=== PATIENT | female | born 1955 | race Caucasian/White ===

== ENCOUNTER 2018-05-21 13:02 | Inpatient (IN) | payer MEDICARE, MEDICAID ==
[~2018-05-21] VITALS: Ht 160 cm; Wt 74.2 kg
[2018-05-21] MEDS ORDERED: SODIUM CHLORIDE FLUSH 10ML SYR IVF ONE (13:30)
[2018-05-21] MEDS ORDERED: ENAL5TAB PO (13:57)
[2018-05-21] MEDS ORDERED: CARV6.25 PO (13:57)
[2018-05-21 14:13] LABS: BASOPHILS # (AUTO) 0.03 x10^3/uL (0-0.1); BASOPHILS % (AUTO) 1 % (0-1); EOSINOPHILS # (AUTO) 0.11 x10^3/uL (0-0.4); EOSINOPHILS % (AUTO) 2 % (1-7); LYMPHOCYTES % (AUTO) 15 % (22-44); MD NO; MEAN CORPUSCULAR HEMOGLOBIN 31.7 pg (27.0-34.8); MEAN CORPUSCULAR HGB CONC 32.6 g/dL (32.4-35.8); MEAN CORPUSCULAR VOLUME 97.2 fL (80-100); MEAN PLATELET VOLUME 9.6 fL (7.4-10.4); MONOCYTES # (AUTO) 0.64 x10^3/uL (0.2-0.8); MONOCYTES % (AUTO) 10 % (2-9); NEUTROPHILS # (AUTO) 4.76 x10^3/uL (1.8-6.8); NEUTROPHILS % (AUTO) 73 % (42-75); PLATELET COUNT 177 x10^3/uL (130-400); RED BLOOD COUNT 4.16 x10^6/uL (3.82-5.3); RED CELL DISTRIBUTION WIDTH 15.8 % (9.6-15.2)
[2018-05-21 14:23] LABS: ALBUMIN 3.2 g/dL (3.4-5.0); ANION GAP 7 mmol/L (5-15); CALCIUM 8.9 mg/dL (8.5-10.1); CHLORIDE 113 mmol/L (98-107)
[2018-05-21 14:30] LABS: ALANINE AMINOTRANSFERASE 28 U/L (12-78); ALKALINE PHOSPHATASE 100 U/L (45-117); BILIRUBIN,TOTAL 1.1 mg/dL (0.2-1.0); CREATININE 1.59 mg/dL (0.55-1.02); FREE T4 (FREE THYROXINE) 1.34 ng/dL (0.76-1.46); TROPONIN I 0.029 ng/mL (0.000-0.045)
--- NOTE | 2018-05-21 15:32 | NUR ---
KAMERON MARSH IN RADIOLOGY REGARDING CHEST X-RAY. STAFF LOOKING INTO DELAY.
[2018-05-21] MEDS ORDERED: PLEASE ENTER HEIGHT AND WEIGHT MC SCH (17:00)
[2018-05-21] MEDS: FUROSEMIDE 40 MG/4 ML IVPush ONE ×2 (17:00→17:25)
[2018-05-21] MEDS ORDERED: PLEASE ENTER ALLERGIES MC SCH (17:00)
[2018-05-21] MEDS ORDERED: FUROSEMIDE 40 MG/4 ML ONE (17:21)
[2018-05-21 18:19] LABS: TROPONIN I 0.036 ng/mL (0.000-0.045)
[2018-05-21 19:22] LABS: HEMOGLOBIN A1C 5.3 % (4.2-6.3)
[2018-05-21] MEDS ORDERED: FUROSEMIDE 40 MG/4 ML IV ONE (19:30)
[2018-05-21] MEDS: HEPARIN 5,000 UNITS/ML, 1ML SQ SCH (20:05)
[2018-05-21] MEDS: CARVEDILOL 3.125 MG TABLET PO SCH (20:06)
[2018-05-21] MEDS: SODIUM CHLORIDE FLUSH 10ML SYR IVF SCH (20:07)
[2018-05-21 20:54] LABS: CHOL/HDL RATIO 5.4; LDL/HDL RATIO 3.7 (0.5-3.0)
[2018-05-21] MEDS ORDERED: ATORVASTATIN 40 MG TABLET PO SCH (21:00)
[2018-05-21] MEDS ORDERED: ENALAPRIL 5MG TABLET PO SCH (21:00)
[2018-05-21] MEDS: ATORVASTATIN 40 MG TABLET PO SCH (21:00)
[2018-05-21] MEDS: ENALAPRIL 5MG TABLET PO SCH (21:00)
[2018-05-21] MEDS ORDERED: ENALAPRIL 2.5MG TABLET PO SCH (21:00)
[2018-05-21 21:42] VITALS: BP 123/70
[2018-05-21 21:46] VITALS: BP_SYST 114; BP_SYST 122; BP_DIAS 66; BP_DIAS 77
[2018-05-21] MEDS: NICOTINE 14MG/24 HR PATCH.TD24 TD SCH (22:26)
[2018-05-21] MEDS: DIPHENHYDRAMINE 25 MG CAPSULE PO PRN (22:26)
[2018-05-21 22:29] VITALS: BP 121/78
[2018-05-21 23:40] LABS: TROPONIN I 0.019 ng/mL (0.000-0.045)
[2018-05-22 02:03] VITALS: BP 117/61
[2018-05-22 02:31] LABS: RAPID INFLUENZA A Negative (Negative); RAPID INFLUENZA B Negative (Negative)
[2018-05-22] MEDS: HEPARIN 5,000 UNITS/ML, 1ML SQ SCH ×3 (04:30→20:25)
[2018-05-22 05:35] LABS: BASOPHILS # (AUTO) 0.02 x10^3/uL (0-0.1); BASOPHILS % (AUTO) 0 % (0-1); EOSINOPHILS # (AUTO) 0.12 x10^3/uL (0-0.4); EOSINOPHILS % (AUTO) 2 % (1-7); LYMPHOCYTES # (AUTO) 1.07 x10^3/uL (1-3.4); LYMPHOCYTES % (AUTO) 18 % (22-44); MD NO; MEAN CORPUSCULAR HGB CONC 33.2 g/dL (32.4-35.8); MEAN CORPUSCULAR VOLUME 96.5 fL (80-100); MEAN PLATELET VOLUME 9.6 fL (7.4-10.4); MONOCYTES # (AUTO) 0.72 x10^3/uL (0.2-0.8); MONOCYTES % (AUTO) 12 % (2-9); NEUTROPHILS # (AUTO) 3.95 x10^3/uL (1.8-6.8); NEUTROPHILS % (AUTO) 67 % (42-75); PLATELET COUNT 146 x10^3/uL (130-400); RED BLOOD COUNT 3.79 x10^6/uL (3.82-5.3); RED CELL DISTRIBUTION WIDTH 15.2 % (9.6-15.2)
[2018-05-22 05:47] LABS: ALBUMIN 3.1 g/dL (3.4-5.0); ANION GAP 6 mmol/L (5-15); CALCIUM 8.9 mg/dL (8.5-10.1); CHLORIDE 110 mmol/L (98-107)
[2018-05-22 05:59] LABS: ALANINE AMINOTRANSFERASE 24 U/L (12-78); ALKALINE PHOSPHATASE 96 U/L (45-117); BILIRUBIN,TOTAL 1.1 mg/dL (0.2-1.0); CREATININE 1.68 mg/dL (0.55-1.02); TOTAL PROTEIN 6.4 g/dL (6.4-8.2)
[2018-05-22] MEDS: CARVEDILOL 3.125 MG TABLET PO SCH ×2 (06:13→18:02)
[2018-05-22] MEDS ORDERED: FUROSEMIDE 20 MG/2 ML IV SCH (07:30)
[2018-05-22 09:30] VITALS: BP 105/63
[2018-05-22] MEDS: FAMOTIDINE 20 MG TABLET PO SCH (09:46)
[2018-05-22] MEDS: ASPIRIN 81 MG TABLET EC PO SCH (09:46)
[2018-05-22] MEDS: SODIUM CHLORIDE FLUSH 10ML SYR IVF SCH ×2 (09:46→20:25)
[2018-05-22] MEDS: MAGNESIUM OXIDE 400 MG TABLET PO SCH (09:46)
[2018-05-22] MEDS: ENALAPRIL 5MG TABLET PO SCH ×2 (09:46→20:24)
[2018-05-22 13:35] VITALS: BP 134/78
[2018-05-22] MEDS ORDERED: MELA10TA7 PO (15:34)
[2018-05-22 18:02] VITALS: BP 126/85
[2018-05-22] MEDS: FUROSEMIDE 20 MG TABLET PO SCH (18:02)
[2018-05-22] MEDS: ATORVASTATIN 40 MG TABLET PO SCH (20:24)
[2018-05-22] MEDS: NICOTINE 14MG/24 HR PATCH.TD24 TD SCH (20:24)
[2018-05-22] MEDS: MELATONIN 5 MG TABLET PO SCH (20:25)
[2018-05-22 20:55] VITALS: BP 103/68
[2018-05-22] MEDS: ACETAMINOPHEN 325 MG TABLET PO PRN (22:57)
[2018-05-23] MEDS: HEPARIN 5,000 UNITS/ML, 1ML SQ SCH ×3 (04:49→21:09)
[2018-05-23 05:56] VITALS: BP 102/65
[2018-05-23] MEDS: CARVEDILOL 3.125 MG TABLET PO SCH ×2 (05:57→17:51)
[2018-05-23 06:07] LABS: BASOPHILS # (AUTO) 0.02 x10^3/uL (0-0.1); BASOPHILS % (AUTO) 0 % (0-1); EOSINOPHILS # (AUTO) 0.18 x10^3/uL (0-0.4); EOSINOPHILS % (AUTO) 3 % (1-7); LYMPHOCYTES # (AUTO) 0.87 x10^3/uL (1-3.4); LYMPHOCYTES % (AUTO) 15 % (22-44); MD NO; MEAN CORPUSCULAR HEMOGLOBIN 31.1 pg (27.0-34.8); MEAN PLATELET VOLUME 10.1 fL (7.4-10.4); MONOCYTES # (AUTO) 0.71 x10^3/uL (0.2-0.8); MONOCYTES % (AUTO) 12 % (2-9); NEUTROPHILS # (AUTO) 4.02 x10^3/uL (1.8-6.8); NEUTROPHILS % (AUTO) 69 % (42-75); PLATELET COUNT 128 x10^3/uL (130-400); RED BLOOD COUNT 4.22 x10^6/uL (3.82-5.3); RED CELL DISTRIBUTION WIDTH 15.4 % (9.6-15.2)
[2018-05-23 06:19] LABS: ANION GAP 7 mmol/L (5-15); CHLORIDE 110 mmol/L (98-107)
[2018-05-23 06:22] LABS: ALANINE AMINOTRANSFERASE 23 U/L (12-78); ALKALINE PHOSPHATASE 101 U/L (45-117); BILIRUBIN,TOTAL 1.7 mg/dL (0.2-1.0); CREATININE 1.97 mg/dL (0.55-1.02); TOTAL PROTEIN 6.7 g/dL (6.4-8.2)
[2018-05-23 07:19] VITALS: BP 123/74
[2018-05-23] MEDS ORDERED: SODIUM CHLORIDE NASAL SPRAY 45ML BOTTLE NAS PRN (09:30)
[2018-05-23] MEDS ORDERED: FUROSEMIDE 20 MG/2 ML IV ONE (09:30)
[2018-05-23] MEDS: FAMOTIDINE 20 MG TABLET PO SCH (09:53)
[2018-05-23] MEDS: FUROSEMIDE 20 MG TABLET PO SCH ×2 (09:54→17:51)
[2018-05-23] MEDS: MAGNESIUM OXIDE 400 MG TABLET PO SCH (09:54)
[2018-05-23] MEDS: ASPIRIN 81 MG TABLET EC PO SCH (09:54)
[2018-05-23] MEDS: SODIUM CHLORIDE FLUSH 10ML SYR IVF SCH ×2 (09:54→21:11)
[2018-05-23] MEDS: ENALAPRIL 5MG TABLET PO SCH ×2 (09:54→21:10)
[2018-05-23 12:48] VITALS: BP 110/69
[2018-05-23] MEDS: ACETAMINOPHEN 325 MG TABLET PO PRN (17:51)
[2018-05-23 19:47] VITALS: BP 105/53
[2018-05-23] MEDS: NICOTINE 14MG/24 HR PATCH.TD24 TD SCH (21:09)
[2018-05-23] MEDS: MELATONIN 5 MG TABLET PO SCH (21:10)
[2018-05-23] MEDS: ATORVASTATIN 40 MG TABLET PO SCH (21:10)
[2018-05-24 03:36] VITALS: BP 131/82
[2018-05-24] MEDS: HEPARIN 5,000 UNITS/ML, 1ML SQ SCH ×3 (04:30→21:09)
[2018-05-24 05:06] LABS: BASOPHILS # (AUTO) 0.03 x10^3/uL (0-0.1); BASOPHILS % (AUTO) 1 % (0-1); EOSINOPHILS % (AUTO) 4 % (1-7); LYMPHOCYTES # (AUTO) 1.06 x10^3/uL (1-3.4); LYMPHOCYTES % (AUTO) 20 % (22-44); MD NO; MEAN CORPUSCULAR HEMOGLOBIN 31.7 pg (27.0-34.8); MEAN CORPUSCULAR HGB CONC 32.7 g/dL (32.4-35.8); MEAN CORPUSCULAR VOLUME 97.1 fL (80-100); MEAN PLATELET VOLUME 9.7 fL (7.4-10.4); MONOCYTES # (AUTO) 0.72 x10^3/uL (0.2-0.8); MONOCYTES % (AUTO) 13 % (2-9); NEUTROPHILS # (AUTO) 3.36 x10^3/uL (1.8-6.8); NEUTROPHILS % (AUTO) 62 % (42-75); PLATELET COUNT 148 x10^3/uL (130-400); RED BLOOD COUNT 3.94 x10^6/uL (3.82-5.3); RED CELL DISTRIBUTION WIDTH 14.9 % (9.6-15.2)
[2018-05-24 05:15] LABS: CHLORIDE 108 mmol/L (98-107)
[2018-05-24 05:27] LABS: ALANINE AMINOTRANSFERASE 23 U/L (12-78); ALBUMIN 2.9 g/dL (3.4-5.0); ALKALINE PHOSPHATASE 99 U/L (45-117); ANION GAP 6 mmol/L (5-15); BILIRUBIN,TOTAL 0.9 mg/dL (0.2-1.0); CALCIUM 8.8 mg/dL (8.5-10.1); CREATININE 1.86 mg/dL (0.55-1.02); TOTAL PROTEIN 6.6 g/dL (6.4-8.2)
[2018-05-24] MEDS: ACETAMINOPHEN 325 MG TABLET PO PRN ×2 (05:35→20:13)
[2018-05-24] MEDS: CARVEDILOL 3.125 MG TABLET PO SCH (05:35)
[2018-05-24 07:43] VITALS: BP 117/74
[2018-05-24] MEDS ORDERED: REGADENOSON 0.4 MG/5 ML SYRINGE ONE (08:03)
[2018-05-24 13:08] VITALS: BP 112/79
[2018-05-24] MEDS: MAGNESIUM OXIDE 400 MG TABLET PO SCH (13:11)
[2018-05-24] MEDS: ENALAPRIL 5MG TABLET PO SCH ×2 (13:11→21:09)
[2018-05-24] MEDS: FAMOTIDINE 20 MG TABLET PO SCH (13:11)
[2018-05-24] MEDS: FUROSEMIDE 20 MG TABLET PO SCH ×2 (13:12→18:20)
[2018-05-24] MEDS: ASPIRIN 81 MG TABLET EC PO SCH (13:12)
[2018-05-24] MEDS: NICOTINE 7 MG/24 HR PATCH.TD24 TD SCH (13:13)
[2018-05-24 18:19] VITALS: BP 121/69
[2018-05-24] MEDS: SODIUM CHLORIDE FLUSH 10ML SYR IVF SCH ×2 (18:20→21:00)
[2018-05-24] MEDS: CARVEDILOL 6.25 MG TABLET PO SCH (18:21)
[2018-05-24 19:45] VITALS: BP 110/68
[2018-05-24] MEDS: ATORVASTATIN 40 MG TABLET PO SCH (21:10)
[2018-05-24] MEDS: MELATONIN 5 MG TABLET PO SCH (21:10)
[2018-05-25 02:42] VITALS: BP 106/65
[2018-05-25 05:18] VITALS: BP 122/58
[2018-05-25] MEDS: CARVEDILOL 6.25 MG TABLET PO SCH ×2 (05:18→16:59)
[2018-05-25] MEDS: HEPARIN 5,000 UNITS/ML, 1ML SQ SCH ×3 (05:19→20:24)
[2018-05-25 05:36] LABS: BASOPHILS # (AUTO) 0.08 x10^3/uL (0-0.1); BASOPHILS % (AUTO) 1 % (0-1); EOSINOPHILS % (AUTO) 5 % (1-7); LYMPHOCYTES # (AUTO) 1.17 x10^3/uL (1-3.4); LYMPHOCYTES % (AUTO) 20 % (22-44); MD NO; MEAN CORPUSCULAR HEMOGLOBIN 31.7 pg (27.0-34.8); MEAN CORPUSCULAR VOLUME 95.8 fL (80-100); MEAN PLATELET VOLUME 9.3 fL (7.4-10.4); MONOCYTES # (AUTO) 0.71 x10^3/uL (0.2-0.8); MONOCYTES % (AUTO) 12 % (2-9); NEUTROPHILS # (AUTO) 3.51 x10^3/uL (1.8-6.8); NEUTROPHILS % (AUTO) 61 % (42-75); PLATELET COUNT 153 x10^3/uL (130-400); RED CELL DISTRIBUTION WIDTH 14.9 % (9.6-15.2)
[2018-05-25 05:48] LABS: CHLORIDE 105 mmol/L (98-107)
[2018-05-25 06:04] LABS: ALANINE AMINOTRANSFERASE 20 U/L (12-78); ALKALINE PHOSPHATASE 89 U/L (45-117); ANION GAP 5 mmol/L (5-15); BILIRUBIN,TOTAL 1.6 mg/dL (0.2-1.0); CALCIUM 8.9 mg/dL (8.5-10.1); CREATININE 1.87 mg/dL (0.55-1.02); TOTAL PROTEIN 6.5 g/dL (6.4-8.2)
[2018-05-25 07:27] VITALS: BP 119/69
[2018-05-25] MEDS: FAMOTIDINE 20 MG TABLET PO SCH (08:22)
[2018-05-25] MEDS: FUROSEMIDE 20 MG TABLET PO SCH ×2 (08:23→16:59)
[2018-05-25] MEDS: ENALAPRIL 5MG TABLET PO SCH ×2 (08:23→20:23)
[2018-05-25] MEDS: SODIUM CHLORIDE FLUSH 10ML SYR IVF SCH ×2 (08:23→20:23)
[2018-05-25] MEDS: ASPIRIN 81 MG TABLET EC PO SCH (08:23)
[2018-05-25] MEDS: MAGNESIUM OXIDE 400 MG TABLET PO SCH (08:23)
[2018-05-25] MEDS ORDERED: FUROSEMIDE 20 MG/2 ML IV ONE (11:00)
[2018-05-25] MEDS ORDERED: POTASSIUM CHLORIDE 20 MEQ TAB.ER.PRT PO ONE (11:00)
[2018-05-25] MEDS: NICOTINE 7 MG/24 HR PATCH.TD24 TD SCH (11:44)
[2018-05-25 13:13] VITALS: BP 102/65
[2018-05-25 18:46] VITALS: BP 117/77
[2018-05-25] MEDS: MELATONIN 5 MG TABLET PO SCH (20:23)
[2018-05-25] MEDS: ATORVASTATIN 40 MG TABLET PO SCH (20:23)
[2018-05-25] MEDS: ACETAMINOPHEN 325 MG TABLET PO PRN (20:24)
[2018-05-25] MEDS: DIPHENHYDRAMINE 25 MG CAPSULE PO PRN (20:24)
[2018-05-26 01:02] VITALS: BP 115/66
[2018-05-26] MEDS: CARVEDILOL 6.25 MG TABLET PO SCH ×2 (05:10→17:34)
[2018-05-26] MEDS: HEPARIN 5,000 UNITS/ML, 1ML SQ SCH ×3 (05:10→19:59)
[2018-05-26 05:49] LABS: ANION GAP 3 mmol/L (5-15); CALCIUM 8.9 mg/dL (8.5-10.1); CHLORIDE 103 mmol/L (98-107)
[2018-05-26 05:51] LABS: CREATININE 1.68 mg/dL (0.55-1.02)
[2018-05-26 07:45] VITALS: BP 112/68
[2018-05-26 09:39] VITALS: BP 112/71
[2018-05-26] MEDS: MAGNESIUM OXIDE 400 MG TABLET PO SCH (09:47)
[2018-05-26] MEDS: ENALAPRIL 5MG TABLET PO SCH ×2 (09:48→20:02)
[2018-05-26] MEDS: FUROSEMIDE 20 MG TABLET PO SCH ×2 (09:50→17:34)
[2018-05-26] MEDS: ASPIRIN 81 MG TABLET EC PO SCH (09:50)
[2018-05-26] MEDS: FAMOTIDINE 20 MG TABLET PO SCH (09:50)
[2018-05-26] MEDS: SODIUM CHLORIDE FLUSH 10ML SYR IVF SCH ×2 (09:51→19:58)
[2018-05-26] MEDS: ACETAMINOPHEN 325 MG TABLET PO PRN ×2 (10:48→19:59)
[2018-05-26] MEDS: SPIRONOLACTONE 25 MG TABLET PO SCH (11:17)
[2018-05-26] MEDS: NICOTINE 7 MG/24 HR PATCH.TD24 TD SCH (11:19)
[2018-05-26 14:50] VITALS: BP 102/57
[2018-05-26 17:33] VITALS: BP 109/66
[2018-05-26] MEDS: MELATONIN 5 MG TABLET PO SCH (19:58)
[2018-05-26] MEDS: ATORVASTATIN 40 MG TABLET PO SCH (19:58)
[2018-05-26] MEDS: DIPHENHYDRAMINE 25 MG CAPSULE PO PRN (19:59)
[2018-05-26 20:46] VITALS: BP 112/74
[2018-05-27 00:20] VITALS: BP 100/64
[2018-05-27 05:12] LABS: CHLORIDE 98 mmol/L (98-107)
[2018-05-27 05:21] LABS: ANION GAP 5 mmol/L (5-15); CALCIUM 9.2 mg/dL (8.5-10.1); CREATININE 1.82 mg/dL (0.55-1.02)
[2018-05-27] MEDS: CARVEDILOL 6.25 MG TABLET PO SCH ×2 (05:30→17:50)
[2018-05-27] MEDS: HEPARIN 5,000 UNITS/ML, 1ML SQ SCH ×2 (05:30→12:58)
[2018-05-27 06:56] VITALS: BP 117/75
[2018-05-27] MEDS: MAGNESIUM OXIDE 400 MG TABLET PO SCH (07:54)
[2018-05-27] MEDS: FUROSEMIDE 20 MG TABLET PO SCH ×2 (07:54→17:50)
[2018-05-27] MEDS: SPIRONOLACTONE 25 MG TABLET PO SCH (07:55)
[2018-05-27] MEDS: SODIUM CHLORIDE FLUSH 10ML SYR IVF SCH (07:55)
[2018-05-27] MEDS: ENALAPRIL 5MG TABLET PO SCH (07:55)
[2018-05-27] MEDS: ASPIRIN 81 MG TABLET EC PO SCH (07:55)
[2018-05-27] MEDS: FAMOTIDINE 20 MG TABLET PO SCH (07:55)
[2018-05-27 12:24] VITALS: BP 113/59
[2018-05-27] MEDS: NICOTINE 7 MG/24 HR PATCH.TD24 TD SCH (12:59)
[2018-05-27] MEDS ORDERED: ATOR40TA78 PO (14:41)
[2018-05-27] MEDS ORDERED: MAGN400T50 PO (14:41)
[2018-05-27] MEDS ORDERED: FURO20TA3 PO (14:41)
[2018-05-27] MEDS ORDERED: ASPI81TA45 PO (14:41)
[2018-05-27] MEDS ORDERED: SPIR25TA PO (14:41)
[2018-05-27] MEDS ORDERED: NICO-485 TD (14:41)
[2018-05-27] MEDS ORDERED: NITROGLYCERIN 0.4 MG BOTTLE (25 TABS) SL PRN (15:00)
[2018-05-27] MEDS ORDERED: NITROGLYCERIN 0.4 MG/SPRAY SL PRN (15:00)
[2018-05-27 17:49] VITALS: BP 122/70
== END 2018-05-27 22:13 | DRG 291 ==
LOC: ED 16:52 → EDIP 17:30 → 5SO 18:56
PROVIDERS: ADMIT Internal Medicine; ATTEND Internal Medicine
DX: I11.0 Hypertensive heart disease with heart failure (principal); J96.01 Acute respiratory failure with hypoxia; I50.21 Acute systolic (congestive) heart failure; Q61.3 Polycystic kidney, unspecified; J98.11 Atelectasis; R17 Unspecified jaundice; I25.10 Atherosclerotic heart disease of native coronary artery without angina pectoris; Z95.1 Presence of aortocoronary bypass graft; N18.9 Chronic kidney disease, unspecified; F17.210 Nicotine dependence, cigarettes, uncomplicated; F32.9 Major depressive disorder, single episode, unspecified; F41.0 Panic disorder [episodic paroxysmal anxiety]; I34.0 Nonrheumatic mitral (valve) insufficiency; J44.9 Chronic obstructive pulmonary disease, unspecified; I15.1 Hypertension secondary to other renal disorders; Z79.82 Long term (current) use of aspirin; Z82.49 Family history of ischemic heart disease and other diseases of the circulatory system; Z86.718 Personal history of other venous thrombosis and embolism; Z99.81 Dependence on supplemental oxygen; Z88.2 Allergy status to sulfonamides
CPT/HCPCS: 36415; 36600; 71045; 78452; 78582; 80048; 80053; 80061; 82803; 83036; 83735; 83880; 84439; 84443; 84484; 85025; 87400; 93005; 93017; 93306; 93970; 99285; G0378; J1644; J1940; J2785; A9502; A9558; C9898; Q0163